=== PATIENT | female | born 1960 | race Caucasian/White ===

== ENCOUNTER 2019-08-10 07:23 | Outpatient (CLI) | payer BC, OTHER ==
[2019-08-10 18:20] LABS: SARS-CoV-2 MS2 Positive; SARS-CoV-2 N Gene Negative; SARS-CoV-2 S Gene Negative; SARS-CoV-2 orf1ab Negative
== END 2019-08-10 07:24 | disposition home or self-care (01) ==
LOC: LABBT 07:23
PROVIDERS: ATTEND Family Medicine
DX: Z01.812 Encounter for preprocedural laboratory examination (principal); Z11.59 Encounter for screening for other viral diseases
CPT/HCPCS: 87635; U0003

== ENCOUNTER 2019-08-13 05:59 | Day surgery (SDC) | payer BC ==
[2019-08-10 10:12] VITALS: BMI 28.8
[2019-08-13] MEDS ORDERED: Phenylephrine 2.5% Ophth Soln 5 ML BOT ONE (06:24)
[2019-08-13] MEDS ORDERED: Cyclopentolate 1% Opth Drop 2 ML BOT ONE (06:24)
[2019-08-13] MEDS ORDERED: Midazolam HCl 2 mg/2 ml Vial ONE (06:28)
[2019-08-13] MEDS ORDERED: Fentanyl 100 MCG/2 ML VIAL ONE (06:28)
[2019-08-13] MEDS ORDERED: EPINEPHrine 0.3 MG in Ophthalmic Irrigation Solution 500 ML IRR SCH ×2 (06:32→06:45)
--- NOTE | 2019-08-13 08:59 | OP ---
DATE OF PROCEDURE: 08/13/2019 PRINCIPAL PREOPERATIVE DIAGNOSIS: Rhegmatogenous retinal detachment, right eye. POSTOPERATIVE DIAGNOSIS: Rhegmatogenous retinal detachment, right eye. PROCEDURES PERFORMED: 1. 25-gauge pars plana vitrectomy, right eye. 2. Retinal detachment repair, right eye. 3. Endolaser, right eye. 4. 15% SF6, right eye. ESTIMATED BLOOD LOSS: None. SPECIMENS REMOVED: None. COMPLICATIONS: None. ANESTHESIA: MAC with sub-Tenon's block. DESCRIPTION OF PROCEDURE: The patient was identified in the preoperative holding area, where the correct eye being the right eye was marked for surgery. The patient was taken to the operating room, where the right eye was prepped and draped in the usual sterile ophthalmic fashion for surgery. A wire-clip lid speculum was placed. A sub-Tenon's block was administered to the right eye. The block consisted of 1:1 ratio of 4% lidocaine and 0.75% Marcaine. A total of 5 mL was administered. A standard 25-gauge pars plana vitrectomy platform was fashioned with trocars placed approximately 4 mm from the limbus. The infusion was noted to be within the vitreous cavity prior to being turned on to infusion pressure of 30 mmHg. The light pipe and microvitrector were introduced in the eye under visualization of the BIOM viewing system. A total rhegmatogenous retinal detachment was noted with a superotemporal retinal tear noted at approximately 11 o'clock. This was within an area of lattice degeneration. A careful core and peripheral shave vitrectomies were performed with the assistance of scleral depression. Great care was taken to relieve all traction off the aforementioned defects. Following completion of vitrectomy, the defect was marked with endo cautery. An air-fluid exchange was subsequently performed, which allowed for complete flattening of the retina. Endolaser was used to provide barricade around the aforementioned defect as well as the lattice degeneration. Following endolaser, the flute needle was re-introduced in the eye to remove the residual subretinal fluid. An air-gas exchange was subsequently performed with 15% SF6. The supranasal sclerotomy was sutured with 8-0 Vicryl suture. Following suturing, all cannulas were removed, and the area was noted to be gas tight. Subconjunctival Ancef and Kenalog were injected. The wire-clip lid speculum was removed followed by application of TobraDex ophthalmic ointment, light patch, and shield. The patient tolerated the procedure well and was taken to outpatient recovery area in good condition. Job ID: [id number]
[2019-08-13] MEDS ORDERED: Bupivacaine PF 0.75% SDV 10 ML ONE (11:36)
[2019-08-13] MEDS ORDERED: CEFAZOLIN 1 GM VIAL ONE (11:36)
[2019-08-13] MEDS ORDERED: Maxitrol 0.1% Opth Oint 3.5 GM TUBE ONE (11:36)
[2019-08-13] MEDS ORDERED: Triamcinolone 40 MG/ML VIAL ONE (11:36)
[2019-08-13] MEDS ORDERED: PROPOFOL 200 MG/20 ML VIAL ONE (11:36)
[2019-08-13] MEDS ORDERED: Lidocaine 1% PF 5 ML VIAL ONE (11:36)
[2019-08-13] MEDS ORDERED: Lidocaine 4% PF 5 ML AMP ONE (11:36)
== END 2019-08-13 08:45 | disposition home or self-care (01) ==
LOC: SDC 05:59 → EEVIPCON 09:30
PROVIDERS: ATTEND Ophthalmology Retina Specialist
PROC: 08T43ZZ Resection of Right Vitreous, Percutaneous Approach (ICD-10-PCS; principal; 2019-08-13)
DX: H33.051 Total retinal detachment, right eye (principal); F41.9 Anxiety disorder, unspecified; F32.9 Major depressive disorder, single episode, unspecified; Z79.899 Other long term (current) drug therapy
CPT/HCPCS: 67025; J0171; J0690; J2001; J2250; J2704; J3010; J3301; J3490

== ENCOUNTER 2019-08-30 06:43 | Outpatient (CLI) | payer BC, OTHER ==
[2019-08-30 17:36] LABS: SARS-CoV-2 MS2 Positive; SARS-CoV-2 N Gene Negative; SARS-CoV-2 S Gene Negative; SARS-CoV-2 orf1ab Negative
== END 2019-08-30 06:44 | disposition home or self-care (01) ==
LOC: LABBT 06:43
PROVIDERS: ATTEND Ophthalmology Retina Specialist
DX: Z01.812 Encounter for preprocedural laboratory examination (principal); Z11.59 Encounter for screening for other viral diseases; H33.21 Serous retinal detachment, right eye
CPT/HCPCS: 87635; U0003

== ENCOUNTER 2019-09-03 05:50 | Day surgery (SDC) | payer BC ==
[2019-08-30 09:54] VITALS: BMI 28.1
[2019-09-03] MEDS ORDERED: Phenylephrine 2.5% Ophth Soln 5 ML BOT ONE (06:21)
[2019-09-03] MEDS ORDERED: Cyclopentolate 1% Opth Drop 2 ML BOT ONE (06:21)
[2019-09-03] MEDS ORDERED: EPINEPHrine 0.3 MG in Ophthalmic Irrigation Solution 500 ML IRR SCH (06:40)
[2019-09-03] MEDS ORDERED: Fentanyl 100 MCG/2 ML VIAL ONE ×3 (06:49→08:38)
[2019-09-03] MEDS ORDERED: Midazolam HCl 2 mg/2 ml Vial ONE ×2 (06:49→07:53)
[2019-09-03] MEDS ORDERED: PROPOFOL 20 ML ONE ×2 (06:49→06:59)
[2019-09-03] MEDS ORDERED: HYDROcodone/Acetaminophen 5/325 mg Tablet ONE (09:46)
--- NOTE | 2019-09-03 10:02 | OP ---
DATE OF PROCEDURE: 09/03/2019 PRINCIPAL PREOPERATIVE DIAGNOSIS: Rhegmatogenous retinal detachment, right eye, macula off. POSTOPERATIVE DIAGNOSIS: Rhegmatogenous retinal detachment, right eye, macula off. NAME OF PROCEDURES PERFORMED: 1. 25-gauge pars plana vitrectomy, right eye. 2. Retinal detachment repair, right eye. 3. Endolaser, right eye. 4. Silicone oil fill, right eye. ESTIMATED BLOOD LOSS: None. SPECIMENS REMOVED: None. COMPLICATIONS: None. ANESTHESIA: MAC with subtenon's block. SUMMARY OF OPERATION: The patient was identified in the preoperative holding area where the correct eye being the right eye was marked for surgery. The patient was taken to the operating room where MAC anesthesia was induced. The right eye was prepped and draped in the usual sterile ophthalmic fashion for surgery. A wire clip lid speculum was placed. An inferonasal conjunctival peritomy was fashioned with Craig scissors for administration of subtenon's block. The block consisted of 1:1 ratio of 4% lidocaine and 0.75% Marcaine. A total of 5 mL was administered. A standard 25-gauge pars plana vitrectomy platform was fashioned with the trocars placed approximately 4.0 mm from the limbus. The infusion was noted to be within the vitreous cavity prior to being turned on to an infusion pressure of 30 mmHg. The light pipe and micro vitrector were introduced in the eye under visualization of the BIOM viewing system. A total macula-off rhegmatogenous retinal detachment was noted. A horseshoe retinal tear was noted at approximately 11 o'clock. Grade B PVR was noted throughout the retina. The retina was noted to be stiff; however, no shalom star folds were noted on the surface of the retina. A peripheral shave vitrectomy was performed with the assistance of scleral depression. Following vitrectomy, Endocautery was used to create a superotemporal drainage retinotomy site. The retinotomy was created with Endocautery followed by opening with a flute needle. An air-fluid exchange was performed, which allowed for complete flattening of the retina. Endolaser was used to provide barricade around the retinotomy site as well as around the defect and a 360-degree cerclage with sparing of the 3 and 9 o'clock meridians. Following laser, the flute needle was reintroduced in the eye to remove any residual subretinal fluid. A complete silicone oil fill was subsequently achieved. The cannulas were sequentially removed and all sclerotomies were sutured with 8-0 Vicryl suture. Following suturing, all sclerotomies were noted to be oil tight. Subconjunctival Ancef and Kenalog were injected. The wire-clip lid speculum was removed followed by application of TobraDex ophthalmic ointment and a light patch and shield. The patient tolerated the procedure well and was taken to the outpatient recovery area in good condition. Job ID: [id number]
[2019-09-03] MEDS ORDERED: PROPOFOL 200 MG/20 ML VIAL ONE (12:11)
== END 2019-09-03 10:08 | disposition home or self-care (01) ==
LOC: SDC 05:50
PROVIDERS: ATTEND Ophthalmology Retina Specialist
PROC: 08T43ZZ Resection of Right Vitreous, Percutaneous Approach (ICD-10-PCS; principal; 2019-09-03)
DX: H33.001 Unspecified retinal detachment with retinal break, right eye (principal); Z79.899 Other long term (current) drug therapy
CPT/HCPCS: C1814; J0171; J2250; J2704; J3010

== ENCOUNTER 2019-09-20 08:51 | Outpatient (CLI) | payer BC, OTHER ==
[2019-09-21 14:26] LABS: SARS-CoV-2 MS2 Positive; SARS-CoV-2 N Gene Negative; SARS-CoV-2 S Gene Negative; SARS-CoV-2 orf1ab Negative
== END 2019-09-20 08:52 | disposition home or self-care (01) ==
LOC: LABBT 08:51
PROVIDERS: ATTEND Family Medicine
DX: Z01.812 Encounter for preprocedural laboratory examination (principal); Z11.59 Encounter for screening for other viral diseases; H33.001 Unspecified retinal detachment with retinal break, right eye
CPT/HCPCS: 87635; U0003

== ENCOUNTER 2019-09-25 09:31 | Day surgery (SDC) | payer BC ==
[2019-09-20 09:10] VITALS: BMI 28.8
[~2019-09-25 09:31] MED LIST: EPINEPHrine 0.3 MG in Ophthalmic Irrigation Solution 500 ML IRR SCH
[2019-09-25] MEDS ORDERED: Cyclopentolate 1% Opth Drop 2 ML BOT ONE (10:03)
[2019-09-25] MEDS ORDERED: Phenylephrine 2.5% Ophth Soln 5 ML BOT ONE (10:03)
[2019-09-25] MEDS ORDERED: Fentanyl 100 MCG/2 ML VIAL ONE (11:11)
[2019-09-25] MEDS ORDERED: PROPOFOL 200 MG/20 ML VIAL ONE (11:34)
[2019-09-25] MEDS ORDERED: Triamcinolone 40 MG/ML VIAL ONE (11:34)
[2019-09-25] MEDS ORDERED: Lidocaine 4% PF 5 ML AMP ONE (11:34)
[2019-09-25] MEDS ORDERED: Lidocaine 1% PF 5 ML VIAL ONE ×2 (11:34)
[2019-09-25] MEDS ORDERED: Bupivacaine PF 0.75% SDV 10 ML ONE (11:34)
[2019-09-25] MEDS ORDERED: Tobramycin/Dexamethasone Ophth Oint 3.5 GM TUBE ONE (11:34)
[2019-09-25] MEDS ORDERED: Dexamethasone 20 MG/5 ML VIAL ONE (11:34)
[2019-09-25] MEDS ORDERED: Ondansetron PF 4 MG/2 ML Vial ONE (11:34)
[2019-09-25] MEDS ORDERED: CEFAZOLIN 1 GM VIAL ONE (11:34)
[2019-09-25] MEDS ORDERED: Acetaminophen 500 MG TAB ONE ×2 (15:11→15:13)
--- NOTE | 2019-09-25 15:44 | OP ---
DATE OF PROCEDURE: 09/25/2019 PRINCIPAL PREOPERATIVE DIAGNOSIS: Macula off tractional retinal detachment, right eye. POSTOPERATIVE DIAGNOSIS: Macula off tractional retinal detachment, right eye. PROCEDURES PERFORMED: 1. 25-gauge pars plana vitrectomy, right eye. 2. Tractional retinal detachment repair, right eye. 3. 42 band encircling scleral buckle placed in right eye. 4. Air-fluid exchange, right eye. 5. Endolaser, right eye. 6. Silicone oil fill, right eye. ESTIMATED BLOOD LOSS: None. SPECIMENS REMOVED: None. COMPLICATIONS: None. ANESTHESIA: General with LMA with subtenon block. SUMMARY OF THE OPERATION: The patient was identified in the preoperative holding area. The correct eye being the right eye was marked for surgery. The patient was taken to the operating room, where general anesthesia was induced. The right eye was prepped and draped in the usual sterile ophthalmic fashion for surgery. A wire-clip lid speculum was placed. A 360-degree conjunctival peritomy was fashioned with Craig scissors. A standard 25-gauge pars plana vitrectomy platform was fashioned with trocars placed approximately 4 mm from the limbus. The infusion was noted to be within the vitreous cavity prior to being turned on to an infusion pressure of 30 mmHg. The light pipe and microvitrector were introduced in the eye under visualization of the BIOM viewing system. 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 The silicone oil extrusion device was inserted in the eye to remove the majority of the silicone oil. The Yeison MaxGrip forceps were used to gently remove the proliferative vitreoretinopathy from the retina, significantly relaxing the retina. The four rectus muscles were isolated with muscle hook and tied with 2-0 silk suture. 5-0 Mersilene was used to provide mattress suture in each of the four oblique quadrants. Following placement of the mattress suture, the 42 band was brought to the table and threaded underneath the mattress sutures as well as the four rectus muscles and the scleral buckle sleeve was used to join both ends of the buckle supranasally. The adequate buckle height was confirmed as well as coverage of the defects with the use of the light pipe in the BIOM. The ends of the scleral buckle were trimmed subsequently, and all Mersilene sutures were tied to secure the buckle. Attention was again turned intra-ocularly, where an air-fluid exchange was performed with drainage of subretinal fluid through the only inferior defects. Endolaser was subsequently applied to barricade the defects. Subsequently, a complete silicone oil fill was achieved. The cannulas were sequentially removed and all sclerotomies were sutured with 7-0 Vicryl. A subtenon block was administered with 4% lidocaine and 0.75% Marcaine. A total of 5 mL was administered. The conjunctiva was reapproximated using 7-0 Vicryl suture. Subconjunctival Ancef and Kenalog were subsequently injected. The wire-clip lid speculum was removed followed by application of TobraDex ophthalmic ointment and a light patch and shield. The patient tolerated the procedure well and was taken to outpatient recovery area in good condition. Job ID: [id number]
[2019-09-25] MEDS ORDERED: Ondansetron ODT 4 MG TAB ONE (15:59)
== END 2019-09-25 16:25 | disposition home or self-care (01) ==
LOC: SDC 09:31 → EEVIPCON 14:30 → SDC 16:25
PROVIDERS: ATTEND Ophthalmology Retina Specialist
PROC: 08U00JZ Supplement of Right Eye with Synthetic Substitute, Open Approach (ICD-10-PCS; principal; 2019-09-25)
PROC: 08T43ZZ Resection of Right Vitreous, Percutaneous Approach (ICD-10-PCS; principal; 2019-09-25)
DX: H33.41 Traction detachment of retina, right eye (principal); Z79.899 Other long term (current) drug therapy
CPT/HCPCS: C1814; J0171; J0690; J1100; J2001; J2405; J2704; J3010; J3301; J3490; Q0162

== ENCOUNTER 2020-01-10 07:55 | Outpatient (CLI) | payer BC, OTHER ==
[2020-01-11 12:26] LABS: SARS-CoV-2 MS2 Positive; SARS-CoV-2 N Gene Negative; SARS-CoV-2 S Gene Negative; SARS-CoV-2 by NAA Not Detected (NotDetected); SARS-CoV-2 orf1ab Negative
== END 2020-01-10 07:56 | disposition home or self-care (01) ==
LOC: LABBT 07:55
PROVIDERS: ATTEND Ophthalmology Retina Specialist
DX: H35.341 Macular cyst, hole, or pseudohole, right eye (principal); Z20.828 Contact with and (suspected) exposure to other viral communicable diseases
CPT/HCPCS: 87635; U0003

== ENCOUNTER 2020-01-15 11:36 | Day surgery (SDC) | payer BC ==
[2020-01-14 12:28] VITALS: BMI 28.1
[2020-01-15] MEDS ORDERED: Phenylephrine 2.5% Ophth Soln 5 ML BOT ONE (11:47)
[2020-01-15] MEDS ORDERED: Cyclopentolate 1% Opth Drop 2 ML BOT ONE (11:47)
[2020-01-15] MEDS ORDERED: CEFAZOLIN 1 GM VIAL ONE (12:35)
[2020-01-15] MEDS ORDERED: Triamcinolone 40 MG/ML VIAL ONE (12:35)
[2020-01-15] MEDS ORDERED: Ondansetron PF 4 MG/2 ML Vial ONE (12:35)
[2020-01-15] MEDS ORDERED: Lidocaine 1% PF 5 ML VIAL ONE ×2 (12:35)
[2020-01-15] MEDS ORDERED: Maxitrol 0.1% Opth Oint 3.5 GM TUBE ONE (12:35)
[2020-01-15] MEDS ORDERED: Bupivacaine PF 0.75% SDV 10 ML ONE (12:35)
[2020-01-15] MEDS ORDERED: Dexamethasone 20 MG/5 ML VIAL ONE (12:35)
[2020-01-15] MEDS ORDERED: Indocyanine Green 25 MG/10 ML VIAL ONE (12:35)
[2020-01-15] MEDS ORDERED: PROPOFOL 200 MG/20 ML VIAL ONE (12:35)
[2020-01-15] MEDS ORDERED: Lidocaine 4% PF 5 ML AMP ONE (12:35)
[2020-01-15] MEDS ORDERED: Fentanyl 100 MCG/2 ML VIAL ONE ×2 (12:49→14:25)
[2020-01-15] MEDS ORDERED: Midazolam HCl 2 mg/2 ml Vial ONE (12:49)
[2020-01-15] MEDS ORDERED: Acetaminophen 500 MG TAB ONE (15:53)
--- NOTE | 2020-01-15 19:02 | OP ---
DATE OF PROCEDURE: 01/15/2020 PRINCIPAL PREOPERATIVE DIAGNOSIS: Silicone oil, status post retinal detachment repair, right eye. POSTOPERATIVE DIAGNOSIS: Silicone oil, status post retinal detachment repair, right eye. PROCEDURES PERFORMED: 1. 25-gauge pars plana vitrectomy, right eye. 2. Silicone oil removal, right eye. 3. Focal laser treatment, right eye. ESTIMATED BLOOD LOSS: None. SPECIMENS REMOVED: None. COMPLICATIONS: None. ANESTHESIA: MAC with sub-Tenon's block. DESCRIPTION OF PROCEDURE: The patient was identified in the preoperative holding area. The correct eye being the right eye was marked for surgery. The patient was taken to the operating room, where LMA was induced. The right eye was then prepped and draped in the usual sterile ophthalmic fashion for surgery. A wire-clip lid speculum was placed. A standard 25-gauge pars plana vitrectomy platform was fashioned with trocars placed approximately 4 mm from the limbus. The infusion was noted to be within the vitreous cavity prior to being turned on to an infusion pressure of 30 mmHg. The silicone oil extrusion device was inserted into the eye to remove the majority of the silicone oil. Subsequently, the light pipe and flute needle were introduced into the eye under visualization of the BIOM viewing system. The retina was noted to be flat and attached with adequate buckle height. Three sequential air-fluid exchanges were performed to remove any residual silicone oil. Following air-fluid exchanges, the retina was closely examined and the inferotemporal defect required additional laser. This barricade was placed slightly posterior to the defect with endolaser as well as slightly anterior to the defect encircling the defect. Following laser, the cannulas were sequentially removed and all sclerotomies were sutured with 8-0 Vicryl suture. Following suturing, all sclerotomies were noted to be watertight. An inferonasal conjunctival peritomy was fashioned with Craig scissors for administration of sub-Tenon's block. The block consisted of 1:1 ratio of 4% lidocaine and 0.75% Marcaine. A total of 5 mL was administered. The subconjunctival Ancef and Kenalog were injected. The wire-clip lid speculum was removed followed by application of TobraDex ophthalmic ointment and a light patch and shield. The patient tolerated procedure well and was taken to outpatient recovery area in good condition. Job ID: [id number] [facility]
== END 2020-01-15 16:24 | disposition home or self-care (01) ==
LOC: SDC 11:36
PROVIDERS: ATTEND Ophthalmology Retina Specialist
PROC: 08943ZZ Drainage of Right Vitreous, Percutaneous Approach (ICD-10-PCS; principal; 2020-01-15)
PROC: 08T43ZZ Resection of Right Vitreous, Percutaneous Approach (ICD-10-PCS; principal; 2020-01-15)
PROC: 08QE3ZZ Repair Right Retina, Percutaneous Approach (ICD-10-PCS; principal; 2020-01-15)
DX: H33.21 Serous retinal detachment, right eye (principal); Z79.899 Other long term (current) drug therapy
CPT/HCPCS: J0171; J0690; J1100; J2001; J2250; J2405; J2704; J3010; J3301; J3490